=== PATIENT | male | born 1995 | race Caucasian/White ===

== ENCOUNTER 2024-09-19 10:15 | Emergency (ER) | payer OTHER, SELFPAY ==
[2024-09-19 10:21] VITALS: BP 144/88; PULSE 64; TEMP 36.4; O2SAT 100; BMI 26.2
--- NOTE | 2024-09-19 10:52 | ED.CHESTPAI1 ---
HPI - Chest Pain General Chief Complaint: Chest Pain Stated Complaint: CHEST PAIN Time Seen by Provider: 09/19/24 10:24 Source: patient and family Mode of arrival: walk-in Limitations: no limitations History of Present Illness HPI narrative: 29-year-old male to the emergency department with chief complaint of chest pain. Symptoms began yesterday. It has been near constant. He reported that it is a pressure-like pain. No aggravating or alleviating factors. He did see some increased lifting yesterday just prior to onset. No cardiac history. No family history of cardiac problems at a young age. No history of DVT or PE. Related Data Home Medications ?Medication ?Instructions ?Recorded ?Confirmed venlafaxine 37.5 mg 37.5 mg PO DAILY 09/19/24 09/19/24 capsule,extended release 24 hr Allergies Allergy/AdvReac Type Severity Reaction Status Date / Time No Known Drug Allergies Allergy Verified 09/19/24 10:24 Review of Systems ROS Status of ROS 10 or more systems reviewed and unremarkable except as noted in history and below PFSH PFSH Social History Little interest or pleasure in doing things: not at all Feeling down, depressed, or hopeless: not at all Exam Narrative Exam Narrative: VITALS: I have reviewed the triage vital signs. GENERAL: Well developed, well appearing adult in no acute distress. NEURO: Alert and oriented. Moves all extremities. Face is symmetric and expressive. EYES: PERRL. No scleral icterus or conjunctival injection. No discharge. HENT: Normocephalic, atraumatic. Hearing is grossly intact. Nares grossly patent and without discharge. Mucous membranes moist. NECK: No JVD. Patient moves neck without restriction. CARDIO: Rhythm regular. Normal rate. No murmur, rub, or gallop. Pulses equal bilaterally in the upper and lower extremity. No lower extremity edema. PULM: Lungs clear to auscultation in all solorz[place]. No wheezes, rales, or rhonchi. No conversational dyspnea. No splinting, stridor, or accessory muscle use. GI/: Abdomen is soft and non-tender. Normoactive bowel sounds. EXTREMITIES: Symmetric muscle bulk. No joint swelling. No clubbing, cyanosis, or deformity. SKIN: Warm and dry. Normal turgor. No rash or lesions appreciated. PSYCH: Mood, affect, and interaction is appropriate to the setting. Constitutional Vital Signs, click to edit/add: Last Vital Signs Temp 97.5 F L 09/19/24 10:21 Pulse 64 09/19/24 10:21 Resp 18 09/19/24 10:21 BP 144/88 H 09/19/24 10:21 Pulse Ox 100 09/19/24 10:21 O2 Del Method Room Air 09/19/24 10:21 Course Vital Signs Vital signs: Vital Signs Temperature 97.5 F L 09/19/24 10:21 Pulse Rate 64 09/19/24 10:21 Respiratory Rate 18 09/19/24 10:21 Blood Pressure 144/88 H 09/19/24 10:21 Pulse Oximetry 100 09/19/24 10:21 Oxygen Delivery Method Room Air 09/19/24 10:21 Temperature 97.5 F L 09/19/24 10:21 Pulse Rate 64 09/19/24 10:21 Respiratory Rate 18 09/19/24 10:21 Blood Pressure 144/88 H 09/19/24 10:21 Pulse Oximetry 100 09/19/24 10:21 Oxygen Delivery Method Room Air 09/19/24 10:21 MDM - Chest Pain MDM Narrative Medical decision making narrative: 29-year-old male to the emergency department with chief complaint of chest pain. Vital stable, the patient is afebrile. Cardiac workup with chest x-ray, EKG, basic labs and high-sensitivity troponin is ordered. Symptom onset greater than 3 hours. Single high-sensitivity troponin will be effective. PERC negative, effectively ruling out VTE in this low risk patient. Lab work reviewed and noted. Troponin is low. EKG without evidence of ischemia. Repeat EKG without changes. Findings were discussed with the patient. Recommended outpatient follow-up with his PCP. Return precautions were discussed. All questions were answered. The patient was discharged home. Medical Records Data Attestation: I reviewed the patient's medical records. Lab Data Attestation: I reviewed the patient's lab results. Labs: Lab Results 09/19/24 09/19/24 Range/Units 11:20 11:51 WBC 6.2 (4.0-11.0) 10^3/uL RBC 5.45 (4.70-6.10) 10^6/uL Hgb 16.3 (14.0-18.0) g/dL Hct 47.5 (42.0-54.0) % MCV 87.2 (80.0-94.0) fL MCH 29.9 (25.9-34.0) pg MCHC 34.3 (29.9-35.2) g/dL RDW 12.2 (11.0-15.0) % Plt Count 279 (150-450) 10^3/uL MPV 8.9 L (9.5-13.5) fL Neut % (Auto) 55.9 (43.0-75.0) % Lymph % (Auto) 29.8 (20.5-60.0) % Logan % (Auto) 9.9 (1.7-12.0) % Eos % (Auto) 2.3 (0.9-7.0) % Baso % (Auto) 1.3 (0.2-2.0) % Neut # (Auto) 3.5 (1.4-6.5) 10^3/uL Lymph # (Auto) 1.8 (1.2-3.8) 10^3/uL Logan # (Auto) 0.6 (0.3-0.8) 10^3/uL Eos # (Auto) 0.1 (0.0-0.7) 10^3/uL Baso # (Auto) 0.1 (0.0-0.1) 10^3/uL Abs Immat Gran (auto) 0.05 H (0.00-0.03) 10^3/uL Imm/Tot Granulo (auto) 0.8 H (0.0-0.5) % Sodium 140 (136-145) mmol/L Potassium 4.1 (3.5-5.1) mmol/L Chloride 106 (98-107) mmol/L Carbon Dioxide 28.3 (21.0-32.0) mmol/L Anion Gap 9.8 BUN 22.0 H (7.0-18.0) mg/dL Creatinine 0.91 (0.70-1.30) mg/dL Est GFR ( Amer) >60 (>=60 mL/min/1.73m^2) Est GFR (Non-Af Amer) >60 (>=60 mL/min/1.73m^2) BUN/Creatinine Ratio 24.2 Glucose 99 (74-106) mg/dL Calcium 9.2 (8.5-10.1) mg/dL Troponin I High Sens 6.0 (4.0-76.1) pg/mL Imaging Data Chest x-ray: Attestation: I have reviewed the pertinent imaging results. Radiologist's impression: ITS Impressions Chest X-Ray 09/19/24 11:12 IMPRESSION: No acute cardiopulmonary pathology. Impression dictated by: Adam Whalen M.D. 09/19/2024 12:39 PM Dictation Location: [place] [address] Electronically authenticated by: [id number] Y Date: 09/19/2024 12:39 ECG Data Attestation: I personally reviewed and interpreted this ECG as follows: (Normal sinus rhythm at 65. No STEMI. Normal QTc at 408. Moderate artifact) Heart Score History: Slightly/Non-Suspicious ECG: Normal Age: <45 years Risk Factors: No Risk Factors Troponin: <Normal Limit Total Heart Score Recommendations & Risks:: 0 Discharge Plan Discharge Chief Complaint: Chest Pain Clinical Impression: Atypical chest pain Patient Disposition: Home, Self-Care Time of Disposition Decision: 13:06 Condition: Good Mode of Transportation: Private Vehicle Prescriptions / Home Meds: No Action venlafaxine 37.5 mg capsule,extended release 24hr 37.5 mg PO DAILY Print Language: Pakistani Instructions: Chest Pain (ED) Additional Instructions: Call the office of your primary care doctor to arrange for follow-up within the above-stated timeframe. Your ED visit was focused on your acute issue and does not replace primary care. You should review your labs, imaging, and diagnoses from this ED visit with your primary care physician. There may be non-emergent/ incidental findings that need further evaluation. You should review your vital signs including blood pressure with your PCP. If you were prescribed medications you should discuss possible side-effects and drug interactions with your pharmacist. Call 911 or go to the nearest Emergency Department if you develop any new or worsening symptoms. Seek immediate medical attention if you develop: worsening chest pain, new chest pain, nausea, vomiting, weakness, numbness, tingling, excessive sweating, shortness of breath, difficulty breathing, loss of motion in your arms or legs, or any new or worsening symptoms. Referrals: Physician,Non-Staff, MD [Primary Care Provider] - 1 week
--- NOTE | 2024-09-19 11:12 | ECG_ITS ---
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 Measurements Intervals [place] Rate: 65 P: 61 DC: 182 QRS: 36 QRSD: 106 T: 15 QT: 412 QTc: 424 Interpretive Statements 1100 Sinus rhythm 2440 Incomplete right bundle branch block 6220 Possible left atrial enlargement 8102 Low QRS voltage in chest leads Abnormal ECG Compared to ECG 06/13/2016 13:04:43 Incomplete right bundle-branch block now present Low QRS voltage now present Electronically Signed On 09-19-2024 18:53:07 EDT by TEN TRAYLOR M.D.
--- NOTE | 2024-09-19 11:12 | XR_ITS ---
The [address] [address] Patient Name: ADONIS CALLE MRN: [id number] date: 1995 Sex: M Assigned Patient Location: ER Current Patient Location: ER Accession/Order Number: [id number] Exam Date: 09/19/2024 12:39 Report Date: 09/19/2024 12:39 At the request of: GALO WEST MD Procedure: XR chest 1V XR chest 1V 09/19/2024 12:07 PM SIGNS AND SYMPTOMS: ^chest pain PROTOCOL: Frontal radiograph the chest COMPARISON: None FINDINGS: The trachea is midline. The heart and mediastinal structures are within normal limits. The lung parenchyma is clear. The bony thorax is intact. XR/XR chest 1V IMPRESSION: No acute cardiopulmonary pathology. Impression dictated by: Adam Whalen M.D. 09/19/2024 12:39 PM Dictation Location: [place] [address] Electronically authenticated by: [id number] Y Date: 09/19/2024 12:39
[2024-09-19 11:28] LABS: Hematocrit 47.5 % (42.0-54.0); Hemoglobin 16.3 g/dL (14.0-18.0); Immature Granulocytes Abs Auto 0.05 10^3/uL (0.00-0.03); Immature Granulocytes Pct Auto 0.8 % (0.0-0.5); Lymphocytes Absolute Auto 1.8 10^3/uL (1.2-3.8); Mean Corpuscular HGB Conc 34.3 g/dL (29.9-35.2); Mean Corpuscular Hemoglobin 29.9 pg (25.9-34.0); Mean Corpuscular Volume 87.2 fL (80.0-94.0); Platelet Count 279 10^3/uL (150-450); Red Blood Count 5.45 10^6/uL (4.70-6.10); White Blood Count 6.2 10^3/uL (4.0-11.0)
[2024-09-19 12:13] LABS: Anion Gap 9.8; Blood Urea Nitrogen 22.0 mg/dL (7.0-18.0); Calcium 9.2 mg/dL (8.5-10.1); Carbon Dioxide 28.3 mmol/L (21.0-32.0); Chloride 106 mmol/L (98-107); Estimated GFR (African America >60 (>=60 mL/min/1.73m^2); Estimated GFR (Non-African Ame >60 (>=60 mL/min/1.73m^2); Glucose 99 mg/dL (74-106); Potassium 4.1 mmol/L (3.5-5.1); Sodium 140 mmol/L (136-145)
--- NOTE | 2024-09-19 12:51 | ECG_ITS ---
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 Measurements Intervals [place] Rate: 57 P: 43 VT: 180 QRS: 55 QRSD: 102 T: 44 QT: 422 QTc: 415 Interpretive Statements 1100 Sinus rhythm 2440 Incomplete right bundle branch block 9130 borderline ECG Compared to ECG 09/19/2024 10:28:31 No significant changes Electronically Signed On 09-19-2024 18:53:36 EDT by TEN TRAYLOR M.D.
== END 2024-09-19 13:10 | disposition home or self-care (01) ==
PROVIDERS: Emergency Provider Student in an Organized Health Care Education/Training Program
DX: R07.89 Other chest pain (principal)
CPT/HCPCS: 71045; 80048; 84484; 85025; 93005; 99285